=== PATIENT | male | born 1955 | race Caucasian/White ===

== ENCOUNTER 2018-06-02 15:07 | Outpatient (CLI) | payer BC, SELFPAY ==
--- NOTE | 2018-06-02 15:04 | DI.RAD_ITS ---
SYMPTOM/DIAGNOSIS: LT YURIDIA PELVIS AND LEFT HIP: Comparison is made with 21 May 2017. There has been no change in the appearance of the left hip prosthesis or surrounding bone. Moderate degenerative changes are again noted of the right hip.
== END 2018-06-02 15:27 ==
PROVIDERS: PCP Physician Assistant; Visit Provider Physician Assistant
DX: Z96.642 Presence of left artificial hip joint (principal); Z47.1 Aftercare following joint replacement surgery; M16.11 Unilateral primary osteoarthritis, right hip
CPT/HCPCS: 73502

== ENCOUNTER 2024-10-05 14:50 | Outpatient (CLI) | payer BC, SELFPAY ==
--- NOTE | 2024-10-05 10:23 | DI.RAD_ITS ---
Exam(s) XR KNEE RT 4V AP,LAT,JACQUELYN,PAT EXAM: XR KNEE RT 4V AP,LAT,JACQUELYN,PAT CLINICAL HISTORY: RIGHT KNEE PAIN. TECHNIQUE: 2D digital imaging was performed. Three views. COMPARISON: No exams were available for comparison FINDINGS: BONES: No acute fracture is present. No bony destructive lesion is seen. Small enthesophyte at the tibial tubercle. JOINTS: Severe narrowing of the medial femoral tibial joint space with a [id number] appearance. Mi ld periarticular spurring. Mild spurring at the lateral femoral tibial joint and patellofemoral join t.. No joint effusion is seen. SOFT TISSUE: Medial venous varicosities. IMPRESSION: Severe degenerative changes medial femoral tibial joint. DATA REPOSITORY: RADIATION DOSE DELIVERED:
--- NOTE | 2024-10-05 10:48 | DI.RAD_ITS ---
Exam(s) XR HIP RT COMPLETE AP PELVIS EXAM: XR HIP RT COMPLETE AP PELVIS CLINICAL HISTORY: right hip pain. TECHNIQUE: 2D digital imaging was performed. Two views COMPARISON: CR XR hip LT complete AP pelvis from 06/02/2018 FINDINGS: BONES: No acute fracture is present. No bony destructive lesion is seen. There is stable alignment of the left hip prosthesis. There is no evidence abnormal surrounding bony lucency. JOINTS: No dislocation present. There is moderate narrowing of the right hip joint space. There is mild spurring at the acetabulum and margin of the femoral head. Findings are similar to prior. SOFT TISSUE: Normal. IMPRESSION: Stable appearance of left hip prosthesis. Stable moderate degenerative changes of the right hip. DATA REPOSITORY: RADIATION DOSE DELIVERED:
== END 2024-10-05 14:51 | disposition home or self-care (01) ==
LOC: DIORS 14:51
PROVIDERS: PCP Physician Assistant; Visit Provider Student in an Organized Health Care Education/Training Program
DX: M25.561 Pain in right knee (principal); M16.11 Unilateral primary osteoarthritis, right hip
CPT/HCPCS: 73502; 73564

== ENCOUNTER 2024-10-06 01:17 | Outpatient (CLI) | payer BC, SELFPAY ==
--- NOTE | 2024-10-06 07:45 | DI.MRI_ITS ---
Exam(s) MR UPPER JOINT RT WO EXAM: MR UPPER JOINT RT WO CLINICAL HISTORY: RUPTURE rt TRICEPS tendon,preop,s46.311a TECHNIQUE: Multiplanar multisequence MRI was performed without intravenous contrast. COMPARISON: CR XR ELBOW CMPLT MIN 3V RT from 09/18/2024 FINDINGS: MARROW: There is no evidence of fracture, bone contusion, nor ominous osseous lesions. The radial he ad and neck are intact as is the capitellum and trochlea. ELBOW JOINT: There is a mild amount of increased fluid in the posterior aspect of the elbow joint. T here is no large elbow joint effusion. 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 . There are no loose intra-articular bodies evident. EPICONDYLES: There is no abnormal intraosseous signal in the epicondyles and there is no significant abnormal signal on the common extensor and flexor tendons. Osteophytic density measuring 6 x 4 mm is seen in the common extensor tendon adjacent to the lateral epicondyle. This is not an avulsion frac ture as it appears corticated and there is no abnormal intraosseous signal at this level. ULNAR COLLATERAL LIGAMENT: The anterior band which extends from the medial epicondyle to the sublime tubercle of the coronoid process of the ulna is intact. This structure is the strongest ligament in t he elbow and is the main opponent to severe valgus stress. RADIAL COLLATERAL LIGAMENT: Intact TENDONS: Mild increased insertional signal at the radial tuberosity but no significant tear of the biceps. The brachialis tendon is intact. There is a full-thickness tear of the central long head triceps tendon which is torn off of the poste rior olecranon and retracted to a level 3.5 cm above the normal posterior olecranon insertion site. T his central tendon is comprised of the long and lateral heads of the triceps. There appears to be asha e preservation of the medial head of the triceps muscular attachment to the deeper posterior olecrano n. There is intramuscular edema extending to and above the musculotendinous junction. There is promin ent intervening fluid which is also within the olecranon bursa. CUBITAL TUNNEL/ULNAR NERVE: The ulnar nerve appears unremarkable beneath the cubital tunnel retinacul um/ arcuate ligament and posterior to the medial epicondyle. There is no evidence of arthritic spur arising from the epicondyle nor olecranon causing impingement on the ulnar nerve. There is no eviden ce of accessory anconeus muscle causing impingement at this level. There is also no evidence of soft tissue mass nor ganglia on cyst causing impingement at this level. OTHER FINDINGS: IMPRESSION: 1. Full-thickness tear of the central long head triceps tendon (comprised of the long head and latera l head) with approximately 3.5 cm retraction of the tendon off the posterior olecranon and intervenin g fluid signal. There appears to be some preservation of the deeper medial head muscular attachment. 2. Other findings as above. DATA REPOSITORY:
== END 2024-10-06 01:37 ==
PROVIDERS: PCP Physician Assistant; Visit Provider Student in an Organized Health Care Education/Training Program
DX: S46.311A Strain of muscle, fascia and tendon of triceps, right arm, initial encounter (principal); X58.XXXA Exposure to other specified factors, initial encounter
CPT/HCPCS: 73221

== ENCOUNTER 2024-10-08 10:03 | Day surgery (SDC) | payer BC, SELFPAY ==
[2024-10-08] VITALS (33 sets, daily range): BP systolic 124–154; BP diastolic 62–79; PULSE 57–70; RESP 0–23; TEMP 36.3–36.9; O2SAT 84–100; BMI 33.7
--- NOTE | 2024-10-08 07:23 | W.PM.DSUDISC ---
Date of service: 10/08/24 Discharge Plan Disposition Patient Disposition: Home Condition: Stable Discharge Details Attending Provider: Maximilian Grissom Primary Care Provider: Jv Voss Home Meds and New Rx's Prescriptions: New naproxen 250 mg tablet 250 - 500 mg PO BID PRN (Reason: Moderate pain) Qty: 40 0RF oxycodone 5 mg tablet 5 - 10 mg PO Q4H PRN (Reason: Moderate to severe pain) Qty: 18 0RF Continued Jardiance 10 mg tablet 10 mg PO DAILY metformin 500 mg tablet 500 mg PO TID Ozempic 1 mg/dose (4 mg/3 mL) pen injector 1 mg subcut QWEEK losartan 100 mg tablet 100 mg PO DAILY simvastatin 20 MG tablet 20 mg PO DAILY omeprazole 20 MG capsule,delayed release(DR/EC) 20 mg PO DAILY duloxetine 60 mg capsule,delayed release(DR/EC) 60 mg PO HS sertraline 25 mg tablet 25 mg PO HS aspirin 81 mg capsule 81 mg PO DAILY atorvastatin 80 mg tablet acetaminophen [Mapap Extra Strength] 500 MG tablet 1,000 mg PO TID Qty: 120 3RF Discharge Instructions Additional Instructions: Surgery: Right subacute distal triceps tendon repair 10/08/24 Activity: Non-weightbearing right upper extremity for 6-8 weeks. Maintain less than 90 degrees flexed in splint until follow-up. Encourage wrist, hand, and finger range of motion to prevent stiffness and improve circulation. Use elevation to minimize swelling and discomfort. Plan on transition to hinged elbow brace at initial follow-up. A physical therapy prescription will be sent to start in about 3 weeks. Triceps repair protocol (Conservative due to subacute repair): NO ACTIVE elbow extension for 6 weeks. [place]?assisted extension after 6 weeks. Active extension against gravity after 8 weeks. Gradually increase flexion about 10 degrees per week from 90 degrees week 2 to full flexion around postop week 8 Start strengthening at 10-12 weeks postop (isometrics okay in full extension after 8 weeks) Concentric strengthening at 3 months, eccentric at 4 months Prescriptions: Naproxen 250 mg take 1-2 every 12 hours with a meal as needed for moderate pain Oxycodone 5 mg take 1-2 every 4-6 hours as needed for severe pain You may use [id number] Tylenol (acetaminophen) as needed for mild pain. These pain medications may be taken all at once or in different combinations as needed. Also, recommend Colace (docusate) as a stool softener as surgery and pain medicine cause constipation. You may try [id number] diphenhydramine (Benadryl) 25-50 mg nightly as a sleep aid Dressings: Leave splint and dressing in place until follow-up. Keep clean and dry at all times. You may loosen/adjust Raffaele bandage as as needed for comfort. Follow-up: 10-[address] Grissom You may take off the leg compression stockings this evening at home. You may also leave them on a few days longer if you have a history of leg swelling or edema. Let us know right away if you develop any redness, drainage, fevers, chest pain, or trouble breathing. Do not drink alcohol or drive for at least 24 hours after anesthesia. Please call the office during business hours with any questions or concerns. Stand Alone Forms: Anesthesia Discharge Inst., Anes.Nerve Block Instructions, Nishant Franco ([facility]) Referrals: Maximilian Grissom MD [ [facility] STAFF PHYSICIAN] - 10/20/24 1:45 pm Discharge Orders Discharge Orders: Discharge Order (Routine); Ordered 10/08/24 Ordered By: Larry Farooq DS: Diagnosis Discharge Diagnosis (1) Rupture of right triceps tendon: Status: Acute
--- NOTE | 2024-10-08 10:14 | W.ANESPRE ---
General Info Date of Service Date Performed: 10/08/24 Height: 6 ft 5 in Weight: 129.274 kg Body Mass Index (BMI): 33.7 Surgical Procedure: Operation Date: 10/08/24 12:40 Proposed Procedure Side Surgeon p Distal Triceps Tendon Repair Right Maximilian Grissom MD Meds Allergies and Home Medications Allergies Allergy/AdvReac Type Severity Reaction Status Date / Time No Known Allergies Allergy Verified 10/08/24 11:31 Home Medication ?Medication ?Instructions ?Recorded omeprazole 20 mg capsule,delayed 20 mg PO DAILY 04/10/17 release simvastatin 20 mg tablet 20 mg PO DAILY 04/10/17 acetaminophen 500 mg tablet (Mapap 1,000 mg (2 x 500 mg) PO TID #120 05/22/17 Extra Strength) tabs empagliflozin 10 mg tablet 10 mg PO DAILY 06/02/18 (Jardiance) metformin 500 mg tablet 500 mg PO TID 06/02/18 losartan 100 mg tablet 100 mg PO DAILY 10/05/24 semaglutide 1 mg/dose (4 mg/3 mL) 1 mg subcut QWEEK 10/05/24 subcutaneous pen injector (Ozempic) aspirin 81 mg capsule 81 mg PO DAILY 10/07/24 duloxetine 60 mg capsule,delayed 60 mg PO HS 10/07/24 release sertraline 25 mg tablet 25 mg PO HS 10/07/24 atorvastatin 80 mg tablet mg 10/08/24 Current Visit Medications: Current Medications Generic Name Dose Route Start Last Admin Trade Name Freq PRN Reason Stop Dose Admin Ringer's Solution 1,000 mls @ 30 mls/hr 10/08/24 06:00 IV 10/08/24 23:59 INFUSION AYANA Cefazolin Sodium 3,000 mg/ 100 mls @ 200 mls/hr 10/08/24 06:00 Sodium Chloride IV 10/08/24 23:59 PREOP AYAAN Tranexamic Acid/Sodium Chloride 1,000 mg in 100 mls @ 600 mls/hr 10/08/24 06:00 IVPB 10/08/24 23:59 PREOP AYAAN IV Miscellaneous Supplies 1 each 10/08/24 06:00 Iv Access IV 10/08/24 23:59 DIRECTED AYAAN Oxycodone HCl 0 mg 10/08/24 07:23 Oxycodone 5 Mg Tab PO 11/07/24 07:22 Q3H PRN PRN Pain Sodium Chloride 0 ml 10/08/24 06:00 Normal Saline Flush 10 Ml Syr IV 10/08/24 23:59 PRN PRN Sodium Chloride 0 ml 10/08/24 06:00 Normal Saline 10 Ml Vial IJ 10/08/24 23:59 DIRECTED PRN Sterile Water 0 ml 10/08/24 06:00 Water,Injection,Sterile 10 Ml Vial IJ 10/08/24 23:59 DIRECTED PRN PFSH Active Problems Active Problems: Problem Status Onset Code Rupture of right triceps tendon Acute S46.311A 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.11 Degenerative joint disease of right hip Chronic M16.11 History of total left hip replacement Chronic Z96.642 Surgical History Surgical History (Updated 10/07/24 @ 13:35 by Chuy Neal) Hx of hernia repair Hx of varicose vein ligation and stripping Hx of cataract surgery Tobacco Smoking/Tobacco Use Status: Never Passive smoking exposure: No Alcohol Alcohol Intake: never Substance Use Substance use: Never Substance use type: does not use Vital Signs and Lab Results Lab Results Blood Type / Crossmatch: No Data to Display Complete Blood Count: No Data to Display Complete Metabolic Panel: Hemoglobin A1c 7.2 % (4.5-5.7) H 10/07/24 11:58 Liver Function Panel: No Data to Display Coagulation Panel: No Data to Display Cardiac Panel: No Data to Display Arterial Blood Gas: No Data to Display Venous Blood Gas: No Data to Display Pancreas Panel: No Data to Display Thyroid Panel: No Data to Display Infectious Disease: No Data to Display Blood Cultures: No Data to Display Toxicology Panel: No Data to Display Anesthesia Assessment and Plan Anesthesia History Personal History: No History of Anesthesia Complications Family History: No Family History of Anesthesia Complications Exercise Tolerance Exercise Tolerance: Metabolic Equivalents>4 Cardiac & Pulmonary Exam Cardiac Exam: Normal S1/S2 Heart Sounds Pulmonary Exam: Clear Bilateral Breath Sounds Implantable Cardiac Device Does patient have a Pacemaker or an ICD?: No Airway Exam Known Difficult Airway: No Mallampati Class: 3 Mouth Opening: Normal (> 3cm) Thyromental Distance: Less than 3 cm Neck Range of Motion: Limited ROM Neck Circumference: Normal Teeth Condition: Normal Dentition ASA Classification ASA Score: ASA 2 Emergency Case?: No NPO Status NPO Status: NPO Clears >2 hours, Solids >8 hours Anesthesia Plan Resuscitation Status: Full Code Anesthesia Technique: General Anesthesia Airway Planned: Endotracheal Tube Pain Management: Surgeon and patient request nerve block Monitors Used: Standard Monitors Preoperative Comments:: 69 yo male for tricep repair. Sig PMHx: HTN (losartan), GERD (omeprazole. states is well controlled, but does carry tums with him), DM2 (last A1c 7.7. Jardiance, metformin, semaglutide), depression (sertraline, duloxetine), never smoker. Previous Anes: - YURIDIA, spinal converted GA with LMA 5 due to movement, no issues. He had not been able to stop is ozempic or jardiance for our normally advised time. While his injury was not appreciated for a few weeks, this repair per ortho notes needs to be performed in a timely fashion.
[2024-10-08] MEDS: Lactated Ringers 1,000 ML 30 ML IV (11:49)
--- NOTE | 2024-10-08 13:12 | W.ANESNERVE ---
Nerve Block Single Injection Procedure Date and Time Date Performed: 10/08/24 Procedure Start: 13:08 Location Where Procedure Performed Procedure Location: Day Surgery Unit Reason Performed: Postoperative Analgesia Requesting Provider: Maximilian Grissom Timeout Performed Timeout Performed: Yes Monitoring Used ECG, Blood Pressure and SpO2 Sterility Sterility: Hand Hygiene, Surgical Cap, Surgical Mask, Sterile Gloves and Chlorhexidine Sedation Given During Procedure Sedation Given (Indicate Dose Given): Versed IV Dose:: 2 mg Patient Mental Status Patient Mental Status: Sedate with meaningful communication Nerve Block 1st Nerve Block: Laterality: Right Block Type: Supraclavicular Ultrasound Image Saved?: Yes Needle / Catheter Used: 100mm SonoPlex II Local Anesthetic Bolus (Indicate Dose Given): Lidocaine used for local infiltration of skin, Bupivacaine 0.5% Dose:: 20 mL and Exparel Dose:: 10 mL Additives (Indicate Dose Given): None Ultrasound: Sterile probe cover and gel used Nerve Stimulator: Supplement to Ultrasound use and No twitch or parasthesia noted < 0.5 mA Paresthesia: None Procedure Tolerated: No Complications Procedure Outcome: Successful Performed By: Pedrito Carbajal
[2024-10-08] MEDS: ceFAZolin 3,000 MG in Normal Saline 100 ML 200 MG IV (13:44)
[2024-10-08] MEDS: TRANEXAMIC ACID/SOD. CHL. 1,000 MG/100 ML BAG 600 MG IVPB (13:48)
[2024-10-08] MEDS: Bupivacaine 0.25% Pres-Free W/EPI 30 ML VIAL (14:22)
--- NOTE | 2024-10-08 16:27 | W.ANESPOSTOP ---
Postoperative Evaluation Date, Time and Location Date Performed: 10/08/24 Time Performed: 16:27 Patient Location: PACU Vital Signs Most Recent Imported Vital Signs: Most Recent Vital Signs Temp Pulse Resp BP Pulse Ox 36.5 C 59 L 0 L 136/63 92 10/08/24 16:15 10/08/24 16:15 10/08/24 16:15 10/08/24 16:15 10/08/24 16:15 Pain Score Most Recent Pain Score: Most Recent Pain Score Pain Level 0 10/08/24 16:15 Assessment Mental Status: Awake (Alert & Oriented to Patient Baseline) Airway and Respiratory Function: Patent airway with normal (patient baseline) respiratory exam (encouraged to CDB, use IS. ) Cardiovascular Function: Hemodynamically Stable Hydration Status: Adequately Hydrated Nausea & Vomiting: No Nausea or Vomiting Pain: Pt. Denies Any Pain Peripheral Nerve Block: Regional nerve block not resolved at time of post operative discharge
--- NOTE | 2024-10-08 16:35 | ROE_ITS ---
Operative Note Operative Note PRE-OP DIAGNOSIS: Right subacute complete retracted triceps tendon rupture POST-OP DIAGNOSIS: same PROCEDURE: Right triceps tendon repair, CPT #96597 SURGEON: Maximilian Grissom HYDRAULIC PLUMBER HELPER: Larry Farooq ANESTHESIA TYPE: Local By Surgeon, General LMA/ETT and Primary Nerve Block Refer to Anesthesia Record ESTIMATED BLOOD LOSS: 15 COMPLICATIONS: None Patient was transported to: PACU Indications: Please see complete medical record for details. Findings: Complete retracted triceps tendon rupture with early degeneration and moderate adhesions Procedure Description: In the operating room, general anesthesia was induced. The patient was positioned lateral on the operating room table. All bony prominences were well-padded. Preoperative antibiotics were administered. The elbow was prepped and draped in the usual sterile fashion. The correct patient, procedure, and side of the procedure were all verified prior to incision. 30 cc of 0.25% bupivacaine containing epinephrine was infiltrated about the longitudinal posterior elbow surgery site. The obvious triceps tendon defect was palpated and incision made a few centimeters proximal to this defect to a few centimeters proximal to the olecranon process. Sharp dissection readily revealed the large triceps defect. There was moderate abundant fibrinous and ea rly healing material. The tendon proper was identified proximally with the avulsion fragments or calcium present. There were adhesions to the superficial and deep layers that were released carefully with a Chahal and digitally along the medial lateral margins taking care towards the elbow and avoiding the humeral side deeply proximally. Once the tendon was adequately mobilized it could be reduced to the footprint without too much tension with the elbow in almost 90 degrees flexion and quite readily with the elbow in about 45 degrees flexion. The olecranon triceps footprint was debrided of fibrinous material and it thoroughly prepared to optimize bone tendon healing. Ruler was used to confirm appropriate measurements of the footprint and the planned transosseous tunnels and suture anchor fixation. FiberTape was chosen due to the large tendon tear and large patient's stature and started beneath the tendon proximally at the planned proximal row of the tendon footprint and used to secure the tendon with Krak?w sutures up and down the tendon with both the medial and lateral pair. A suture tape was then shuttled at the site where the tails exited deeply in the tendon for future back passage. The 2.5 mm Synthes drill was then used at the proximal footprint directing about 2.5 cm distal to olecranon process and exiting with appropriate spacing medial laterally. The transosseous suture passer was used to shuttle the respective medial and lateral tapes and link through these bone tunnels. The bridge configuration was then completed with a tape from each side back passed back through the tendon while reducing it to the footprint with traction on it other suture. The arm was maintained about 45 degrees flexion. There was excellent reduction and compression of the large te ar over the large prepared area. All suture tails were then tensioned to remove any creep or laxity. Digitally holding all the tails the elbow was flexed to 90 degrees without any gapping or failure of the repair. The elbow was brought back into more extension. About 3 cm distal to the olecranon process aiming slightly distally the SwiveLock hard bone drill was used followed by the tap and the Hewson suture passer confirm no anterior cortical penetration. All 4 FiberTape suture tails were then loaded on a 4.75 mm bio composite SwiveLock anchor, which was deployed with excellent fixation strength and tension on the repair sutures. Care was taken to seat the suture anchor fully to avoid prominence. Suture tails were cut short. Repair was inspected with excellent appearance and stable again to 90 degrees flexion not more vigorously tested. The wound was copiously irrigated with normal saline. 0 Vicryl was used to close some redundant deep fascia and scar tissue that had been left over the olecranon process for padding and protection of the repair and buried [id number] manner. 2-0 Monocryl was then used to close subcutaneous layer buried interrupted. Superficial layers were irrigated. 3-0 Monocryl was used to close the skin subcuticular running followed by Mastisol applied around the incision and Steri-Strips applied to minimize tension. Xeroform applied over the incision followed by gauze ABD pad and sterile soft roll. The right upper extremity was then placed into a well-padded posterior splint in about 75 degrees flexion to protect the subacute repair for about 1.5 weeks. The patient awoke from anesthesia without complication and was transferred to the recovery room in stable fashion. Date of Procedure: 10/08/24
== END 2024-10-08 18:12 | disposition home or self-care (01) ==
LOC: SUR 10:03
PROVIDERS: PCP Physician Assistant; Visit Provider Student in an Organized Health Care Education/Training Program
PROC: (CPT 24341; principal; 2024-10-08 12:30)
DX: S46.311A Strain of muscle, fascia and tendon of triceps, right arm, initial encounter (principal); W19.XXXA Unspecified fall, initial encounter; G89.18 Other acute postprocedural pain
CPT/HCPCS: 24342; 64415; J0131; J0665; J0666; J0690; J1100; J1885; J2250; J2405; J2704

== ENCOUNTER 2025-03-01 17:55 | Outpatient (CLI) | payer BC, SELFPAY ==
[2025-03-01 17:12] LABS: HCT 47.4 % (40.0-50.0); HGB 15.5 g/dL (13.5-17.5); MCH 29.8 pg (27.0-33.0); MCHC 32.7 % (32.0-36.0); MCV 91 fL (80-95); MPV 10.6 fL (8.0-11.0); Platelet Count 191 10^3/uL (130-400); RBC 5.21 10^6/uL (4.36-5.78); RDW 12.4 % (11.8-14.1); RDW-SD 40.4 fL; WBC 6.16 10^3/uL (4.4-10.8)
[2025-03-01 17:25] LABS: Anion Gap 8.7 mmol/L (3-11); BUN 38 mg/dL (7-18); CO2 26.3 mmol/L (21.0-32.0); Calcium 9.0 mg/dL (8.5-10.1); Chloride 100 mmol/L (98-107); Estimated GFR 55.09 (mL/min/1.73m2); Glucose 195 mg/dL (74-106); Potassium 4.0 mmol/L (3.5-5.1); Sodium 135 mmol/L (136-145)
[2025-03-01 17:40] LABS: Hemoglobin A1C 7.9 % (<5.7)
== END 2025-03-01 17:56 | disposition home or self-care (01) ==
LOC: LBN 17:56
PROVIDERS: PCP Physician Assistant; Visit Provider Student in an Organized Health Care Education/Training Program
DX: M16.11 Unilateral primary osteoarthritis, right hip (principal); Z01.818 Encounter for other preprocedural examination; E11.9 Type 2 diabetes mellitus without complications
CPT/HCPCS: 80048; 85027; 82985; 83036

== ENCOUNTER 2025-05-26 15:24 | Outpatient (CLI) | payer BC, SELFPAY | END 2025-05-26 15:25 | disposition home or self-care (01) | LOC: LBO 15:25 | PROVIDERS: PCP Physician Assistant; Visit Provider Student in an Organized Health Care Education/Training Program | DX: M16.11 Unilateral primary osteoarthritis, right hip (principal); Z01.818 Encounter for other preprocedural examination | CPT/HCPCS: 36415; 82985 ==

== ENCOUNTER 2025-06-22 06:24 | Day surgery (SDC) | payer BC, SELFPAY ==
[2025-06-22] VITALS (20 sets, daily range): BP systolic 91–151; BP diastolic 32–83; PULSE 59–71; RESP 10–20; TEMP 36.5–36.6; O2SAT 89–97; BMI 33.5
--- NOTE | 2025-06-22 07:07 | PDOC.DSDIS_ITS ---
Date of service: 06/22/25 Discharge Plan Disposition Patient Disposition: Home Condition: Good Discharge Details Reason For Visit: Right hip DJD Attending Provider: Cliff Galvez Primary Care Provider: Jv Voss Home Meds and New Rx's Prescriptions: New celecoxib [Celebrex] 200 mg capsule 200 mg PO BID PRNQty: 60 0RF Rx Instructions: Take one tablet twice daily for pain and inflammation aspirin 81 mg tablet,delayed release (DR/EC) 81 mg PO BID 30 Days Qty: 60 0RF acetaminophen 500 mg tablet 1,000 mg PO Q8H PRN Qty: 90 0RF Rx Instructions: Take two tablets up to every 8 hours as needed for pain docusate sodium [Colace] 100 mg capsule 100 mg PO BID Qty: 28 0RF oxycodone 5 mg tablet 5 mg PO Q6H PRNQty: 12 0RF Rx Instructions: Take one tablet up to every 6 hours as needed for severe postoperative pain Continued losartan 100 mg tablet 100 mg PO DAILY omeprazole 20 MG capsule,delayed release(DR/EC) 20 mg PO DAILY Jardiance 25 mg tablet 25 mg PO DAILY Mounjaro 5 mg/0.5 mL pen injector 5 mg subcut QWEEK metformin 1,000 mg tablet 1,000 mg PO BID duloxetine 60 mg capsule,delayed release(DR/EC) 60 mg PO HS sertraline 25 mg tablet 25 mg PO HS atorvastatin 80 mg tablet 80 mg PO DAILY Discontinued aspirin 81 mg capsule 81 mg PO DAILY acetaminophen [Mapap Extra Strength] 500 MG tablet 1,000 mg PO TID PRN Discharge Instructions Additional Instructions: Total Hip Discharge Instructions Activity: The most important activity is to walk. You should try to take short walks a few times a day. You have no restrictions on movement or positioning, but do not try to force what you do. You will find some stiffness and weakness with hip flexion (lifting your knee). Do not try to strengthen this too early, continue to practice walking and stairs and this will come. - Outpatient physical therapy can be helpful to help return you to a normal gait and improve your flexibility and strength. This can start around 2 weeks. For some patients, it?s not necessary. Usually this is determined at the time of discharge or at the first post-operative visit. - You should wear the AIDA hose on both legs for 2 weeks. Dressing: Keep the surgical dressing in place for at least one week. After the first week it may be removed and replace with light gauze and tape or nothing. It may get wet after 3 days but avoid soaking the dressing. If it gets wet, just lightly pat dry. It is important to always keep some gauze between skin folds, especially when you are sitting. Spend some time with the wound exposed when you are lying flat as the incision does wrinkle onto itself. Medications: - You should take Tylenol and an anti-inflammatory Celebrex as your primary pain control medications. If the Celebrex is too expensive or not covered, please call the office for another alternative (Advil/Ibuprofen or Naproxen/Aleve). - You have been prescribed a stronger pain medication Oxycodone for breakthrough pain, take as needed as prescribed. - You take a stomach acid reduction agent Omeprazole at baseline - continue with this medication to help reduce stomach acid and reflux. - You will be taking Aspirin 81mg twice a day for DVT prevention unless instructed otherwise. - If you have constipation you should take Colace (which has been prescribed) or Miralax (which is available [id number]). It takes most people 3-4 days to have a bowel movement. Follow-up: 2 weeks If you have any acute concerns or questions, please do not hesitate to contact the office at [phone]. You may contact Dr. Galvez with any questions after hours through the hospital at [phone] or on his cell phone at [phone]. Stand Alone Forms: Portal Information Referrals: Cliff Galvez MD [ [facility] STAFF PHYSICIAN, Orthopaedic Surgical] Equipment/Supplies: Walker Activity:: Elevate Remove Dressings/Wound Care:: Do Not Remove Shower/Bathe:: Cover Diet:: As Tolerated Discharge Orders Discharge Orders: Discharge Order (Routine); Ordered 06/22/25 Ordered By: Magnolia Figueroa
--- NOTE | 2025-06-22 07:16 | W.PREOPHP ---
Assessment and Plan Assessment and plan (1) Degenerative joint disease of right hip: Status: Chronic Assessment and plan: Alan is a 69-year-old who has arthritis about the right hip. He is here today for right hip replacement. He has worked hard on decreasing his fructosamine level and now is within acceptable limits. Once again, I reviewed the technical details of the surgery and the necessary time for rehabilitation following the procedure. Furthermore, I went over in detail the possible complications of hip replacement. These include but are not limited to bleeding, infection, pain, stiffness, weakness, damage to nerves (especially the lateral femoral cutaneous nerve), damage to vessels, damage to muscle and tendon, fracture, leg length inequality, wound healing complications, instability, dislocation, and blood clot. Questions were answered. I again expressed that this is a surgery to improve functional quality of life. After a review of the presented information and risks, Alan desired to proceed. History of Present Illness History of Present Illness Chief Complaint: Right Hip Arthritis Narrative: Alan is a 69-year-old male who has known arthritis about the right hip. He has previous left hip replacement for left hip arthritis which has done very well. His initial surgery date was delayed due to hyperglycemia with an increase fructosamine level. However, his most recent fructosamine is less than 294, 289, and he feels much better. He has no other acute medical concerns. He has no change in his history. Review of Systems All systems reviewed & are unremarkable except as noted in HPI and below PFSH All Active Problems Rupture of right triceps tendon (Acute) s/p Right subacute distal triceps tendon repair on 10/08/24 Degenerative joint disease of right knee (Chronic) 40 mg Depo-Medrol injection: 10/05/24 Degenerative joint disease of right hip (Chronic) Medical History Diabetes High cholesterol HTN (hypertension) Surgical History History of appendectomy History of total left hip replacement (05/21/17) Hx of hernia repair Hx of varicose vein ligation and stripping Hx of cataract surgery Social History Smoking/Tobacco Use Status: Never Smoking risk assessment performed?: Yes Alcohol Intake: never Drug use: Never Substance use type: does not use Housing: house Do you feel safe at home: Yes Do you feel safe in your relationship?: Yes Meds Allergies and Home Medications Allergies Allergy/AdvReac Type Severity Reaction Status Date / Time No Known Allergies Allergy Verified 06/22/25 06:46 Home Medications ?Medication ?Instructions ?Recorded ?Confirmed ?Type omeprazole 20 mg capsule,delayed 20 mg PO DAILY 04/10/17 06/22/25 History release losartan 100 mg tablet 100 mg PO DAILY 10/05/24 06/22/25 History duloxetine 60 mg capsule,delayed 60 mg PO HS 10/07/24 06/22/25 History release sertraline 25 mg tablet 25 mg PO HS 10/07/24 06/22/25 History atorvastatin 80 mg tablet 80 mg PO DAILY 10/08/24 06/22/25 History empagliflozin 25 mg tablet 25 mg PO DAILY 04/08/25 06/22/25 History (Jardiance) metformin 1,000 mg tablet 1,000 mg PO BID 04/08/25 06/22/25 History tirzepatide 5 mg/0.5 mL 5 mg subcut QWEEK 04/08/25 06/22/25 History subcutaneous pen injector (Mounjaro) acetaminophen 500 mg tablet 1,000 mg (2 x 500 mg) PO Q8H PRN 06/22/25 Rx pain #90 tabs aspirin 81 mg tablet,delayed 81 mg PO BID 30 days #60 tabs 06/22/25 Rx release celecoxib 200 mg capsule (Celebrex) 200 mg PO BID PRN #60 caps 06/22/25 Rx docusate sodium 100 mg capsule 100 mg PO BID #28 caps 06/22/25 Rx (Colace) oxycodone 5 mg tablet 5 mg PO Q6H PRN #12 tabs 06/22/25 Rx Exam Const General: cooperative, healthy appearing, comfortable and no acute distress Nutritional Appearance: average body habitus Resp Effort & Inspection: normal respiratory effort Auscultation: clear to auscultation bilaterally Cardio Rate: regular rate Rhythm: regular rhythm
[2025-06-22] MEDS: Gabapentin 300 MG CAP PO (07:37)
[2025-06-22] MEDS: Celecoxib 200 MG CAP 400 MG PO (07:37)
[2025-06-22] MEDS: Acetaminophen 500 MG TAB 1000 MG PO (07:37)
--- NOTE | 2025-06-22 07:45 | DI.RAD_ITS ---
Exam(s) XR HIP RT IN OR EXAM: XR HIP RT IN OR CLINICAL HISTORY: right hip degenerative joint disease. TECHNIQUE: 2D and realtime digital imaging was performed. COMPARISON: CR XR HIP RT COMPLETE AP PELVIS from 10/05/2024 FINDINGS: Hard copy images show placement of a right hip prosthesis. The alignment appears satisfactory. Please see procedure note for details. Fluoro time: 31.2 seconds RADIATION DOSE DELIVERED: Ka,r=5.7 mGy
[2025-06-22] MEDS: Lactated Ringers 1,000 ML 80 ML IV (07:50)
--- NOTE | 2025-06-22 08:08 | W.ANESPRE ---
General Info Date of Service Date Performed: 06/22/25 Height: 6 ft 4 in Weight: 125.1 kg Body Mass Index (BMI): 33.5 Surgical Procedure: Operation Date: 06/22/25 09:05 Proposed Procedure Side Surgeon p Hip Total Hip Anterior, Actis Right Cliff Galvez MD Meds Allergies and Home Medications Allergies Allergy/AdvReac Type Severity Reaction Status Date / Time No Known Allergies Allergy Verified 06/22/25 06:46 Home Medication ?Medication ?Instructions ?Recorded omeprazole 20 mg capsule,delayed 20 mg PO DAILY 04/10/17 release losartan 100 mg tablet 100 mg PO DAILY 10/05/24 duloxetine 60 mg capsule,delayed 60 mg PO HS 10/07/24 release sertraline 25 mg tablet 25 mg PO HS 10/07/24 atorvastatin 80 mg tablet 80 mg PO DAILY 10/08/24 empagliflozin 25 mg tablet 25 mg PO DAILY 04/08/25 (Jardiance) metformin 1,000 mg tablet 1,000 mg PO BID 04/08/25 tirzepatide 5 mg/0.5 mL 5 mg subcut QWEEK 04/08/25 subcutaneous pen injector (Mounjaro) acetaminophen 500 mg tablet 1,000 mg (2 x 500 mg) PO Q8H PRN 06/22/25 pain #90 tabs aspirin 81 mg tablet,delayed 81 mg PO BID 30 days #60 tabs 06/22/25 release celecoxib 200 mg capsule (Celebrex) 200 mg PO BID PRN #60 caps 06/22/25 docusate sodium 100 mg capsule 100 mg PO BID #28 caps 06/22/25 (Colace) oxycodone 5 mg tablet 5 mg PO Q6H PRN #12 tabs 06/22/25 Current Visit Medications: Current Medications Generic Name Dose Route Start Last Admin Trade Name Freq PRN Reason Stop Dose Admin Acetaminophen 1,000 mg 06/22/25 06:00 06/22/25 07:37 Acetaminophen 500 Mg Tab PO 06/22/25 23:59 1,000 mg PREOP AYAAN Administration Celecoxib 400 mg 06/22/25 06:00 06/22/25 07:37 Celecoxib 200 Mg Cap PO 06/22/25 23:59 400 mg PREOP AYAAN Administration Gabapentin 300 mg 06/22/25 06:00 06/22/25 07:37 Gabapentin 300 Mg Cap PO 06/22/25 23:59 300 mg PREOP AYAAN Administration Hydromorphone HCl 0.5 mg 06/22/25 07:05 Hydromorphone 2 Mg/Ml Syr IVP 07/22/25 07:04 Q2H PRN PRN Ringer's Solution 1,000 mls @ 80 mls/hr 06/22/25 06:00 06/22/25 07:50 IV 06/22/25 23:59 80 mls/hr INFUSION AYAAN Administration Cefazolin Sodium 3,000 mg/ 100 mls @ 200 mls/hr 06/22/25 06:00 Sodium Chloride IV 06/22/25 23:59 PREOP AYAAN Tranexamic Acid/Sodium Chloride 1,000 mg in 100 mls @ 600 mls/hr 06/22/25 06:00 IVPB 06/22/25 23:59 PREOP AYAAN Cefazolin Sodium/Dextrose 1 gm in 50 mls @ 100 mls/hr 06/22/25 08:00 Ancef Duplex IVPB 06/23/25 00:29 Q8H AYAAN Oxycodone HCl 0 mg 06/22/25 07:05 Oxycodone 5 Mg Tab PO 07/22/25 07:04 Q3H PRN PRN Pain Sodium Chloride 0 ml 06/22/25 06:00 Normal Saline Flush 10 Ml Syr IV 06/22/25 23:59 PRN PRN Sodium Chloride 0 ml 06/22/25 06:00 Normal Saline 10 Ml Vial IJ 06/22/25 23:59 DIRECTED PRN Sterile Water 0 ml 06/22/25 06:00 Water,Injection,Sterile 10 Ml Vial IJ 06/22/25 23:59 DIRECTED PRN Tranexamic Acid 1,300 mg 06/22/25 07:05 Tranexamic Acid 650 Mg Tab PO 07/22/25 07:04 ONCE PRN postoperative PFSH Active Problems Active Problems: Problem Status Onset Code History of total right hip replacement Acute 06/22/25 Z96.641 Rupture of right triceps tendon Acute S46.311A 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.11 Medical History Medical History Diabetes High cholesterol HTN (hypertension) Surgical History Surgical History History of appendectomy History of total left hip replacement (05/21/17) Hx of hernia repair Hx of varicose vein ligation and stripping Hx of cataract surgery Tobacco Smoking/Tobacco Use Status: Never Passive smoking exposure: No Alcohol Alcohol Intake: never Substance Use Substance use: Never Substance use type: does not use Vital Signs and Lab Results Vital Signs Most Recent Vital Signs in EMR: Most Recent Vital Signs Temp Pulse Resp BP Pulse Ox 36.5 C 62 18 151/75 H 96 06/22/25 06:45 06/22/25 06:45 06/22/25 06:45 06/22/25 06:45 06/22/25 06:45 Point of Care Results Point of Care Results: Finger Stick Blood Glucose 158 06/22/25 06:50 Anesthesia Assessment and Plan Anesthesia History Personal History: No History of Anesthesia Complications Family History: No Family History of Anesthesia Complications Exercise Tolerance Exercise Tolerance: Metabolic Equivalents>4 Pertinent Negatives Pertinent Negatives: No Symptoms of GERD Cardiac & Pulmonary Exam Cardiac Exam: Normal S1/S2 Heart Sounds Pulmonary Exam: Clear Bilateral Breath Sounds Implantable Cardiac Device Does patient have a Pacemaker or an ICD?: No Airway Exam Known Difficult Airway: No Mallampati Class: 3 Mouth Opening: Normal (> 3cm) Thyromental Distance: Less than 3 cm Neck Range of Motion: Limited ROM Neck Circumference: Normal Teeth Condition: Normal Dentition ASA Classification ASA Score: ASA 3 Emergency Case?: No NPO Status NPO Status: NPO Clears >2 hours, Solids >8 hours Anesthesia Plan Resuscitation Status: Full Code Anesthesia Technique: Spinal Anesthesia Airway Planned: Natural Airway Monitors Used: Standard Monitors Preoperative Comments:: Appropriately held GLP1 and SGLT2.
[2025-06-22] MEDS: ceFAZolin 3,000 MG in Normal Saline 100 ML 200 MG IV (09:05)
[2025-06-22] MEDS: TRANEXAMIC ACID/SOD. CHL. 1,000 MG/100 ML BAG 600 MG IVPB (09:15)
[2025-06-22] MEDS: ROPIvacaine/EPI/CLONIDINE/KET 50 ML SYRINGE IJ (09:23)
[2025-06-22] MEDS: oxyCODONE 5 MG TAB PO (11:27)
--- NOTE | 2025-06-22 11:42 | W.ANESPOSTOP ---
Postoperative Evaluation Date, Time and Location Date Performed: 06/22/25 Time Performed: 11:42 Patient Location: Day Surgery Unit Vital Signs Most Recent Imported Vital Signs: Most Recent Vital Signs Temp Pulse Resp BP Pulse Ox 36.6 C 61 16 109/66 96 06/22/25 11:06 06/22/25 11:06 06/22/25 11:06 06/22/25 11:06 06/22/25 11:06 Pain Score Most Recent Pain Score: Most Recent Pain Score Pain Level 0 06/22/25 11:06 Assessment Mental Status: Awake (Alert & Oriented to Patient Baseline) Airway and Respiratory Function: Patent airway with normal (patient baseline) respiratory exam Cardiovascular Function: Hemodynamically Stable Hydration Status: Adequately Hydrated Nausea & Vomiting: No Nausea or Vomiting Pain: Pt. Denies Any Pain Peripheral Nerve Block: Patient did not receive a nerve block
--- NOTE | 2025-06-22 11:43 | IN_ITS ---
PT Notes Visit Reasons: Right hip DJD Physical Therapy Day Surgery Initial Evaluation Date: 06/22/2025 Referring Doctor: NORA Navarro PT Orders: PT CONSULT: S/P Ortho Surgery Precautions: WBAT through the R LE with AD. Patient Profile/Admitting Diagnosis: Maikol is a 69-year-old male with degenerative joint disease of the R hip and is S/P R anterior total hip arthroplasty on postoperative day 0. PMHX: All Active Problems Rupture of right triceps tendon (Acute) s/p Right subacute distal triceps tendon repair on 10/08/24 Degenerative joint disease of right knee (Chronic) 40 mg Depo-Medrol injection: 10/05/24 Degenerative joint disease of right hip (Chronic) Medical History Diabetes High cholesterol HTN (hypertension) Surgical History History of appendectomy History of total left hip replacement (05/21/17) Hx of hernia repair Hx of varicose vein ligation and stripping Hx of cataract surgery Social History/Home Situation: Independent with PLOF. Equipment Owned/DME: None Subjective: Agreeable to consult. Denied headache, chest pain, and lightheadedness throughout session. Objective: General Observation: Mepilex Ag over surgical incision. TEDS to B legs. Mental Status: A and O x 4 Pain: 3/10 in the R hip with movement ROM: Right Lower Extremity: Hip flexion lacked the last 25% of AROM due to discomfort. Hip abduction WFL. Knee flexion WFL. Ankle dorsiflexion WFL. Ankle plantarflexion WFL. Left Lower Extremity: Hip flexion WFL. Hip abduction WFL. Knee flexion WFL. Ankle dorsiflexion WFL. Ankle plantarflexion WFL. Strength: Right Lower Extremity: Hip flexors 3-/5. Hip abductors 4-/5. Knee flexors 5/5. Knee extensors 4-/5. Ankle dorsiflexors 5/5. Ankle plantarflexors 5/5. Left Lower Extremity:Hip flexors 5/5. Hip abductors 5/5. Knee flexors 5/5. Knee extensors 5/5. Ankle dorsiflexors 5/5. Ankle plantarflexors 5/5. Sensation: Intact as to pain and light pressure in B LE Bed Mobility/Transfers: Minimal cueing provided for use of B hands as needed for support, movement sequence, AD management, and posture to reduce fall risk and minimize pain report Sit to stand stand by assist with FWW Stand to sit stand by assist with FWW Bed to chair stand by assist with FWW Gait: 150 feet with FWW with stand by assist. Minimal cueing for limb movement sequence, weight distribution, AD management and posture to minimize pain ad reduce fall risk. Step to gait pattern initially but was able to progress to step through heel-toe gait pattern midway through the walk. Stairs: Negotiated 6 x 4-inch steps and 4 x 6-inch steps while holding onto B rails for support, stand by assist only of PT. Minimal cueing for limb movement sequence, weight distribution, AD management and posture to minimize pain ad reduce fall risk. Balance: Static Sitting: Normal Dynamic Sitting: Normal Static Standing: Fair Dynamic Standing: Fair Special Tests: Mobility Limitations Standardized Measure [facility] AM-PAC 6 clicks Basic Mobility Inpatient Short Form: Raw Score: 23 CMS Score: 11% deficit Informed Consent/Education: Patient instructed in purpose of PT consult. Packet containing YURIDIA exercise protocol has been given to patient. Education and training on initial set of exercises that can be done at home have been completed with patient. Trained patient with correct performance of exercises below to maximize motor control, joint flexibility, soft tissue extensibility of the R hip musculature to facilitate return to independent functional mobility performance. Access Code: [email or web address] URL: [email or web address] Date: 01/15/2023 Prepared by: Jael Moran Exercises - Gluteal Sets - 1 x daily - 7 x weekly - 1 sets - 10 reps - 5 hold - Supine Heel Slide - 1 x daily - 7 x weekly - 1 sets - 10 reps - 5 hold - Supine Ankle Pumps - 1 x daily - 7 x weekly - 1 sets - 10 reps - 5 hold - Seated March - 1 x daily - 7 x weekly - 1 sets - 10 reps - 5 hold - Seated Long Arc Quad - 1 x daily - 7 x weekly - 1 sets - 10 reps - 5 hold Assessment: Patient required the use of a front-wheeled walker for all mobility ADL performance to maximize independent and reduce fall risk. Patient presents with clinical signs and symptoms consistent with current/admitting diagnoses that have resulted to mobility limitations, gait instability, generalized weakness, and impairment of motor control as demonstrated by the following impairment level findings: 1. Decreased strength to R hip major muscle groups 2. Impaired standing balance Impairments are contributing to the following functional limitations: 1. Inability to safely ambulate without assistive device 2. Increase completion time for mobility ADL performance 3. Increased fall risk Patient is assessed as a [id number] moderate complexity based on the following: History: 69-year-old male with impairment level findings, functional limitations, and past medical history as indicated above Examination: Demonstrable impairment in strength, balance, and mobility level with underlying impairments and functional limitations as documented above Presentation: Evolving Decision Makin moderate complexity Goals: N/A. PT evaluation and 1-2 treatment sessions only for functional mobility training using recommended AD and for HEP instruction. Plan of Care/Treatment Plan: N/A. PT evaluation and 1-2 treatment session only for functional mobility training using recommended AD and for HEP instruction. DISCHARGE RECOMMENDATIONS: Home when medically cleared by orthopedic surgeon. Recommend outpatient PT services in order to optimize functional mobility outcomes and facilitate return to independent community ambulation without an assistive device. TREATMENT CODE/TIME: 44969 x 23 minutes for 1 unit (11:43-12:06). Thank you for the opportunity to participate in the care of this patient. Jael Moran PT, DPT, CLT [facility] [place], [place]
[2025-06-22] MEDS: Tranexamic Acid 650 MG TAB 1300 MG PO (12:20)
--- NOTE | 2025-06-22 14:37 | ROE_ITS ---
Operative Note Operative Note PRE-OP DIAGNOSIS: Right hip Osteoarthritis POST-OP DIAGNOSIS: same PROCEDURE: Right Anterior Total Hip Arthroplasty with Intraoperative Navigation SURGEON: Cliff Galvez INFORMATION ASSURANCE ANALYST: Magnolia Figueroa ANESTHESIA TYPE: Spinal Refer to Anesthesia Record ESTIMATED BLOOD LOSS: 350 PATHOLOGY: none sent TOURNIQUET TIME: 0 COMPLICATIONS: None Patient was transported to: PACU Patient's condition: stable Implants: 1. Depuy Racine Acetabular Component, 58mm 2. Depuy Acetabular Liner, [id number] 3. Depuy Actis Standard Collared Femoral Stem, Size 9 4. Depuy Altrx Ceramic Femoral Head, Size 36+8.5mm Indications: I have seen Alan in clinic for symptoms of hip arthritis, confirmed with radiographic findings. He has exhausted nonoperative methods and was having significant limitations in daily function and desired better function and less pain. I discussed the technical details of a hip replacement. I explained the risks of the procedure to include, but not limited to, bleeding, infection, pain, stiffness, fracture, damage to nerves and vessels, damage to muscles and tendons, loosening, instability, leg length inequality, need for repeat procedure, blood clot and cardiopulmonary demise. Despite these risks, Alan elected to proceed. Findings: There was significant signs of arthritis throughout the hip. Procedure Description: Alan was greeted in the preoperative holding area where the correct side was identified and marked. The consent was reviewed with the patient and signed. The history and physical was updated. All questions were answered. He was taken back to the operating room. A spinal anesthestic was then administered. The feet were wrapped with cast padding and Coban and then placed into the boot liners and then into the boots. Care was taken to protect the ski n and make sure the heels were fully down and the boots were stable. The patient was then positioned onto the HANA table. Both legs were held in a neutral position. SCDs were applied. The patient was then slid down onto a peroneal post. Prophylactic antibiotics in the form of Cefazolin were administered. 1g of Tranxemic Acid was given intravenously within 30 minutes of incision. The right leg was then prepped with Chloraprep and draped in a standard fashion. A second prep with Chloraprep was performed prior to placement of a shower-curtain type drape with Iodine impregnated skin prot ection. A timeout to confirm correct identity, side and site, procedure, allergies, anesthesia, and medical concerns was performed. An obliquely oriented incision was made starting lateral to the ASIS and running distal over the Tensor Fascia Jen (TFL) muscle belly toward the fibular head, approximately 10cm. The skin and soft tissue was dissected sharply, through Harpal?s fascia, and to the fascia of the TFL. With the fascia and superior border of the IT band identified, the fascia was incised with a new knife just above any perforators from the IT band. The TFL muscle belly was bluntly dissected away from the fascia and moved laterally. The fat between TFL and rectus was identified to ensure the dissection was not within the TFL. Blunt dissection created space between abductors and the capsule and retractor was placed over the lateral femoral neck. The fibers of the rectus femoris tendon were identified and these were freed from the anterior capsule. A second cobra retractor was placed around the medial femoral neck. The TFL was further retracted laterally to show the deep fascia. Careful dissection through this layer identified three main crossing vessels of the lateral femoral circumflex. These were cauterized in multiple locations and then cut without any noticeable bleeding. The TFL was further released bluntly from the deep fascia to expose anterior hip capsule and fat The soft tissue orthopaedic retractor was then placed beneath the TFL and against sartorius and medial soft tissues to protect and retract the soft tissues. A T-capsulotomy was then performed starting at the superior lateral acetabulum and moving distally to the intertrochanteric ridge. These capsular flaps were tagged with a No. 1 Vicryl and elevated from within. The capsular flaps were released to the shoulder of the lateral neck and to the lesser trochanter to give excellent visualization of the proximal femur. A neck osteotomy was performed using an oscillating saw based on preoperative templates. This cut started in the shoulder and of the lateral neck and exited medially. The saw was at all times directed medially to avoid injury to the greater trochanter. Gross traction was applied to the leg and the osteotomy opened. The femoral head was removed with a corkscrew, making sure to protect the TFL on its exit. Traction was released after head removal. This was measured on the back table to determine the starting reamer size. Portions of the rectus obscuring visualization were minimally elevated off the superior acetabulum. An anterior retractor was placed over the anterior wall between capsule and labrum and attached to the Gripper retraction system. The femur was rotated to 90 degrees and medial capsule was fully released until the lesser trochanter was palpable and visible; the femur was returned to 30 degrees. A posterior retractor was placed similarly between capsule and labrum. This provided excellent visualization. The contents of the cotyloid fossa were removed with electrocautery and the labrum was removed with a knife. There was a notable floor osteophyte. There was significant chondromalacia of the superior acetabulum. Acetabular reaming began with a 54mm reamer. This first reaming was directed anterior to posterior and medial to get down to the true floor. This was inspected and reamed until the true floor was reached. The anterior retractor was then released and entry and exit was provided by traction on the capsular flaps. I then reamed sequentially up to a 58mm reamer where good fit was obtained. The larger reamers were oriented based on anatomical reference of the anterior and lateral chatman to ensure proper abduction and anteversion. Positioning and size was confirmed with the fluoroscopy. A 58mm Depuy Racine acetabular component was selected. The acetabulum was reamed around the periphery with the selected acetabular size to prevent a rim fit. The deep tissues were irrigated. The acetabular component was then impacted in a position of about 40-45 degrees of abduction and 15-20 degrees of anteversion, using the patient?s anatomy as the ultimate landmark. Fluoroscopy was used to confirm this. There was excellent children's entertainer of the acetabular component and the inserting handle was removed. The acetabular liner, Depuy [id number] polyethylene liner, was inserted and lined up with the tines of the acetabular component. There was no soft tissue interposition. The liner was then impacted into position and confirmed to be well-seated. A portion of the josh-articular cocktail was then injected around the acetabulum into the capsule and periosteum. This cocktail consisted of 123mg of Ropivacaine, 0.25mg of Epinephrine, 0.04mg of Clonidine, and 15mg of Ketorolac, diluted to 50cc. The leg was rotated to 120 degrees. Any remaining medial capsule was released until the lesser trochanter was easily palpable. A retractor was placed medially. The lateral capsule was further released into the shoulder to allow access to the greater trochanter. A Mcfarlane retractor was placed over the greater trochanter which allowed the trochanter to flip in front of the capsule for excellent exposure. The leg was brought down into maximal extension and 20 degrees of adduction while ensuring there was no impingement on the acetabulum. Any remnant capsule within the trochanter was released. Piriformis and obturator externis were identified and protected. There was excellent access to the proximal femur. The lateral neck remnant was removed with a rongeur. A blunt canal probe was used to identify the canal and trajectory for later broaching. A box osteotome initiated the broach course. A small curved rasp and a curved curette were used to work laterally. Broaching then began with a starter Actis broach. This was inserted manually around the trochanter and into the canal before mallet blows. The broach was seated to a few millimeters below the cut level based on the neck cut and the preoperative template. Sequential broaching was continued with the [employer] pneumatic broaching device until a tight fit was obtained with good rotational control of the femur. A trial st andard neck was inserted along with a +8.5 trial head. The leg was brought out of extension and adduction and then reduced with traction and internal rotation. The leg was stable anteriorly in a position of 30 degrees of extension and 90 degrees of external rotation. Fluoroscopy was used to ensure there was no fracture and the stem was seated well. Leg lengths were checked with an AP pelvis and pelvic reference points. Jack Erwin navigation system was used to confirm appropriate positioning and leg length and offset. Once content with the desired offset and leg lengths, the leg was b rought back into extension, external rotation and adduction. The periosteum and surrounding tissue was injected with remaining portion of the josh-articular cocktail. The proximal femur was irrigated as well as the deep tissues. The [employer] standard collared stem, size 10, was then manually inserted into the proximal femur making sure to control rotation. It was then malleted into position with light blows, giving breaks to allow bone expansion and decrease risk of fracture. The selected Depuy Altrx Ceramic Head, size mm, was then placed onto the clean and dry trunnion and secured with impaction onto the tapered fit. The leg was brought back out of extension and adduction and reduced with traction and internal rotation. Stability was confirmed with no shuck at 90 degrees of external rotation and 30 degrees of extension. No impingement through range of motion arc. Final x-ray images were obtained with fluoroscopy to confirm adequate positioning and no intraoperative fracture. The deep tissues were thoroughly irrigated with Surgiphor, betadine solution. This was allowed to sit in the wound for 3 minutes before being thoroughly irrigated out with normal saline. The capsule was then reapproximated with the previously placed sutures . The TFL fascia was finally closed with a No. 2 Stratafix, barbed suture. Deep tissues were then reapproximated with 0 Vicryl and a running 2-0 Vicryl. The skin was closed with a running 4-0 Monocryl in a subcuticular fashion. This was reinforced with skin glue. A Mepilex silver dressing was applied. At the end of the case, all counts were correct. NAME was transferred to the hospital bed without difficulty and suffering no apparent complication. Alan has a good prognosis. Physical therapy will start today and without restrictions, weight-bearing as tolerated. Aspirin 81mg BID will be used for DVT prophylaxis. Date of Procedure: 06/22/25
== END 2025-06-22 12:30 | disposition home or self-care (01) ==
PROVIDERS: PCP Physician Assistant; Visit Provider Student in an Organized Health Care Education/Training Program
PROC: (CPT 27130; principal; 2025-06-22 08:45)
DX: M16.11 Unilateral primary osteoarthritis, right hip (principal)
CPT/HCPCS: 27130; 20985; 97162; 73501; C1776; J0690; J1100; J2003; J2250; J2371; J2401; J2405; J2704